=== PATIENT | male | born 1950 | race Caucasian/White ===

== ENCOUNTER 2023-09-22 11:50 | Emergency (ER) | payer OTHER, SELFPAY ==
[2023-09-22] VITALS (8 sets, daily range): BP systolic 119–146; BP diastolic 66–74
--- NOTE | 2023-09-22 13:39 | ED.CVA ---
History of Present Illness
General
Chief Complaint: CVA/TIA Symptoms
Source: patient
Exam Limitations: none
Time Seen by Provider: 09/22/23 13:08
Nursing documentation reviewed up to this point in time: agreed with
Onset of Stroke Symptoms
Onset of symptoms known: No
Time pt last seen normal is known: No
Travel History
Have you had any contact with someone who has COVID-19?: No
Do you have any symptoms of coronavirus? Fever > 100 degrees, chills, cough, shortness of breath, sore throat, loss of taste or smell, muscle aches, or headache?: No
History of Present Illness
History of Present Illness:
The patient is a 72-year-old man with a past medical history of hypertension, hyperlipidemia and seizure disorder by prior his for difficulty articulating words for 5 days. Patient reports he first noticed that when he tried to read out loud
during sabianist and kept having to start over. In addition, his reports he has been ' shaky' on his feet. His reports overall, the symptoms have waxed and waned over the last 5 days. He is never had anything like this before. He denies
vision changes, weakness and numbness. He denies fever.
Past History
Past History
ED Past Medical History: HTN and Seizures
Social History
Tobacco: Non-smoker
Living: with family
Employment: Retired
Family History
Family History: Negative Early CAD
Review of Systems
Review of Systems
Allergies reviewed?: Yes
Other source history: other ()
All Other Systems: ROS reviewed and negative except as documented in HPI and ROS
Constitutional: Reports no symptoms
EENT: Reports no symptoms
Respiratory: Reports no symptoms
ABD/GI: Reports no symptoms
: Reports no symptoms
Musculoskeletal: Reports no symptoms
Skin: Reports no symptoms
Neurological: Reports other
Endocrine: Reports no symptoms
Hematologic/Lymphatic: Reports no symptoms
Psychiatric: Reports no symptoms
Phy Exam
Physical Exam
Physical Exam:
Physical Exam
General: no apparent distress, not acutely ill
Neck: supple. no meningeal signs. normal psoterior pharynx
Heart: s1/s2 regular rate and rhythm, no murmur. equal radial pulses.
Lungs: no acute respiratory distress. clear bilaterally
Abdomen: normal bowel sounds. not tender. no CVAT
Neuro: alert and orientedx3. no focal neurological deficits. 5 out of 5 strength in all extremities without drift. Cranial nerves equal and symmetric bilaterally. Patient generally has normal flow of speech but
occasionally has difficulty finding a word.
Skin: no rash
Psychiatric: well kept. interactive and cooperative
Extremities: no edema. no calf tenderness. negative homans. good distal pulses
Scores
NIH Stroke Score
Level of Consciousness: 0 - Alert
LOC Questions: 0-Answers both correctly
LOC Commands: 0-Performs both correctly
Best Horizontal Gaze: 0-Normal
Visual [place]: 0=Normal, no visual loss
Facial Palsy: 0=Normal, symmetrical
Motor - Right Arm: 0=No drift 10 seconds
Motor - Left Arm: 0=No drift 10 seconds
Motor - Right Le-No drift 5 seconds
Motor - Left Le-No drift 5 seconds
Limb Ataxia: 0-Absent
Sensation: 0-Normal
Best Language: 1-Mild aphasia
Dysarthria: 0-Normal
Extinction and Inattention: 0-No abnormality
Total Score:: 1
Course
Orders/Labs/Results
Orders:
Orders
09/22/23 13:38
Electrocardiogram (*1) Stat
Reason for Study: Other
Other Reason for Exam: Headache
CT Head W/o Iv Contrast Urgent
Comment:
Reason For Exam: expressive aphasia for 5 days
EKG- Treatment ONCE
09/22/23 13:39
Urinalysis Reflex To Culture Urgent
Date Specimen was Collected: 09/22/23
Time Specimen was Collected: 14:26
09/22/23 13:40
Complete Blood Count/With Diff Urgent
Comprehensive Metabolic Panel Urgent
Abnormal Lab Results
09/22/23
13:40
RBC 3.43 L 10^6/uL
(4.70-6.10)
Hgb 11.4 L g/dL
(13.0-18.0)
Hct 34.0 L %
(39.0-52.0)
MCV 99.1 H fL
(80.0-94.0)
MCH 33.2 H pg
(27.0-31.0)
MPV 10.8 H fL
(7.4-10.4)
BUN 35 H mg/dl
(9-20)
09/22/23 13:40
09/22/23 13:40
Vital Signs
Initial and Last Documented VS:
Initial Vital Signs
Temp Pulse Resp BP Pulse Ox
98.1 F 62 18 136/73 99
09/22/23 12:01 09/22/23 12:01 09/22/23 12:01 09/22/23 12:01 09/22/23 12:01
Last Documented Vital Signs
Temp Pulse Resp BP Pulse Ox
98.1 F 58 22 146/74 97
09/22/23 12:01 09/22/23 18:30 09/22/23 18:30 09/22/23 18:00 09/22/23 15:00
MDM/Problems Addressed
Differential Diagnosis Includes:
Acute CVA, UTI, acute dehydration
MDM/Problems Addressed:
Patient presents with acute difficulty expressing words
Chronic conditions affecting care: HTN
Acute Exacerbation and/or Progression of Chronic Illness: HTN
*Radiology
Radiology exam reviewed: preliminary read by ED provider and radiology read reviewed
*Pulse Oximetry
Patient hypoxic: no
*EKG
Interpreted by ED Provider?: Yes
Interpretation: abnormal
Comparison EKG: no changes
Rate: bradycardiac
Rhythm: sinus
Ava: normal axis
Interval: normal interval
QRS Pattern: normal QRS
Ischemia: non-specific ST changes
*Soaker Interpretation
Rate: normal
Interpretation: normal
Rhythm: sinus
*Critical Care Note
Total Time (30-74mins, 75-104mins- exclusive of procedures): 47 minutes
comment:
47 minutes critical care given to the patient including discussing the case with radiology here at [facility], discussing the case with neurosurgery at [facility] as well as neurosurgery at [facility]. Also spent time reviewing patient's EKG, lab
work and counseling the patient and his
Data Reviewed
Source: patient and spouse
Patient Management
Social determinants of health affecting care: Living situation and Strong social support
Discussion with other providers: Other ( medical doctor at [facility]. Neurosurgical doctor at [facility]. Dr. Nolasco from neurosurgery at [facility])
Escalation/DeEscalation of care consider admission/obs:
Patient appears stable and well. and patient would like him transferred to [facility]
Update Note
Update Note:
Patient gave written consent and understands risks and benefits of transfer to [facility]. [facility] neurosurgery made aware of patient going to [facility] and agreed to do consult right when patient gets there
ED Attending Note
-
Portions of this chart may have been created with voice recognition software.� Occasional wrong word or��sound alike� substitutions may have occurred due to the inherent limitations of voice recognition software.
Discharge Plan
Departure
Patient Disposition: Acute Care Hospital
Date of Disposition: 09/22/23
Time of Disposition: 15:22
Patient with high blood pressure during this ER visit?: Yes
Condition: Fair
Covid-19: Not Applicable
Discharge Problem:
Spontaneous intraparenchymal intracranial hemorrhage, acute
Prescriptions:
No Action
celecoxib 200 MG capsule
200 mg PO DAILYPRN PRN (Reason: PAIN)
lisinopril 20 MG tablet
20 mg PO QPM
atorvastatin 10 mg Tablet
10 mg PO DAILY
tamsulosin 0.4 mg Capsule
0.4 mg PO BID
cyanocobalamin (vitamin B-12) 1,000 mcg Tablet
1,000 mcg PO DAILY
levothyroxine 125 mcg Tablet
125 mcg PO DAILY
fluticasone propionate 50 mcg/actuation [place],Suspension
2 spray INTRANASAL DAILY
levetiracetam 1,000 mg Tablet
1,500 mg PO QPM
levetiracetam 1,000 mg Tablet
2,000 mg PO DAILY
Calcium + Zinc + Magnesium
1 dose PO DAILY
Multivit + Glucosa/Chondroit
1 dose PO DAILY
[place] 3 Fish Oil
1 dose PO DAILY
Visbiome 112.5 billion cell Capsule
1 cap PO DAILY
Referrals:
Varsha Orozco DO [Family Provider] -
Hospital Transfer
Other hospital: [facility]
I certify that the patient requires transfer: Yes
Discussed case with accepting physician: Dr. Lomeli as well as neurosurgeon at [facility]
Reason for transfer: specialties available
Interventions
Interventions:
*General Assessment Last Done: 09/22/23 13:29
ED- Fall Risk Assessment Last Done: 09/22/23 13:22
*ED COVID-19 Vaccine History Last Done: 09/22/23 12:01
ED- Pulmonary Assessment Last Done: 09/22/23 13:29
ED- Neurological Assessment Last Done: 09/22/23 13:30
ED- Cardiac Assessment Last Done: 09/22/23 13:24
ED Swallowing Screen Last Done: 09/22/23 16:00
Discharge Date and Time
Print Language: SYRIAN
[2023-09-22 13:48] LABS: % Basophils 0.5 % (0-2); % Eosinophils 0.7 % (0-6); % Immature Granulocytes 0.2 % (0-0.5); % Lymphocytes 31.8 % (20.5-51.1); % Monocytes 6.8 % (1.7-9.3); Absolute Lymphocytes 1.9 10^3/uL (1.2-3.4); Absolute Monocytes 0.4 10^3/uL (0.1-0.6); Absolute Neutrophils 3.6 10^3/uL (1.4-6.5); Hemoglobin 11.4 g/dL (13.0-18.0); Mean Corp Hgb Conc. 33.5 g/dL (33.0-37.0); Mean Corpuscular Hgb 33.2 pg (27.0-31.0); Mean Corpuscular Volume 99.1 fL (80.0-94.0); Mean Platelet Volume 10.8 fL (7.4-10.4); Nucleated Red Blood Cells % 0 % (-); Platelet Count 199 10^3/uL (130-400); Red Blood Cell Count 3.43 10^6/uL (4.70-6.10); Red Cell Dist. Width 12.9 % (11.5-14.5)
[2023-09-22 14:01] LABS: ALT (SGPT) 25 U/L (0-50); AST (SGOT) 33 U/L (17-59); Albumin 4.7 g/dl (3.5-5.0); Alkaline Phosphatase 60 U/L (38-126); Blood Urea Nitrogen 35 mg/dl (9-20); Carbon Dioxide 26 mmol/L (22-30); Chloride 106 mmol/L (98-107); Glucose 97 mg/dl (70-99); Potassium 4.4 mmol/L (3.5-5.1); Sodium 135 mmol/L (135-145); Total Bilirubin 0.9 mg/dl (0.2-1.3); Total Protein 7.4 g/dl (6.3-8.2); eGFR > 60.00
[2023-09-22 19:48] LABS: Urine Albumin Negative (Neg - Trace); Urine Bilirubin Negative (Negative); Urine Character Clear (Clear); Urine Color Yellow; Urine Glucose Negative (Negative); Urine Ketone Trace (Negative); Urine Leukocyte Negative (Negative); Urine Nitrite Negative (Negative); Urine Occult Blood Negative (Negative); Urine Urobilinogen Negative (Neg - 1+)
[2023-09-23 00:15] VITALS: BP 120/68
[2023-09-23 01:42] VITALS: BP 118/68
[2023-09-23 04:15] VITALS: BP 119/61
[2023-09-23 06:00] VITALS: BP 112/62
== END 2023-09-23 06:15 | disposition short-term general hospital (02) ==
LOC: EMR 11:50
PROVIDERS: EMERGENCY PHYSICIAN Emergency Medicine; FAMILY PHYSICIAN Family Medicine
DX: I62.9 Nontraumatic intracranial hemorrhage, unspecified (principal); I10 Essential (primary) hypertension
CPT/HCPCS: 99291; 70450; 80053; 81003; 85025; 93005

== ENCOUNTER → 2023-10-28 08:00 | Outpatient (REF) | payer OTHER, SELFPAY | LOC: PET 08:00 | PROVIDERS: ATTENDING PHYSICIAN Internal Medicine Hematology & Oncology | DX: C79.31 Secondary malignant neoplasm of brain (principal); R94.02 Abnormal brain scan; C80.1 Malignant (primary) neoplasm, unspecified | CPT/HCPCS: 78816; A9552 ==

== ENCOUNTER → 2023-11-11 12:39 | Outpatient (REF) | payer OTHER, SELFPAY | LOC: RAD 12:39 | PROVIDERS: ATTENDING PHYSICIAN Internal Medicine Hematology & Oncology; FAMILY PHYSICIAN Family Medicine | DX: C43.9 Malignant melanoma of skin, unspecified (principal) | CPT/HCPCS: 71260; Q9967 ==